=== PATIENT | male | born 1985 | race Caucasian/White ===

== ENCOUNTER 2016-11-27 02:35 | Emergency (ER) | payer OTHER ==
--- NOTE | ~2016-11-27 | US115 ---
[facility] A Service of [facility] [place] RADIOLOGY TEXT RESULTS PATIENT: CHEY ZELAYA LOCATION: SED : 85 UNIT #: [id number] AGE: [address]: Jarrod Rueda MD SEX: M ORDER DR: [id number] [place] [id number] E MR#: [id number] Acc #: [id number] NAME: CHEY ZELAYA : 1985 SEX: M STUDY DATE/TIME: 11/27/2016 04:05 UNIT: SED ROOM: STUDY DESCRIPTION: US Scrotum and Contents Attending Physician: Jarrod Rueda M.D. Ordering Physician: Jarrod Rueda M.D. MEDICAL IMAGING REPORT This report is preliminary unless electronic signature is present. EXAM Scrotal ultrasound 11/27/2016 04:05 INDICATION Right testicular pain and swelling for 3 days. FINDINGS Pemberton-scale, color flow, and spectral Doppler waveform analysis is performed of the scrotum and contents. No comparison. Both testicles are normal. There are no intratesticular masses. Both testicles show perfusion by Doppler. Both epididymides are normal to the extent that they are visible. There is a small right hydrocele. There is also a questionable small right inguinal hernia. IMPRESSION 1. Both testicles are normal. 2. Trace amount of right hydrocele. 3. Epididymides grossly normal to the extent that they are seen. 4. Questionable small fat containing inguinal hernia on the right. Dictated by... Adelfo Pozo Jr., M.D. THIS IS AN ELECTRONICALLY VERIFIED REPORT Adelfo Pozo Jr., M.D. at 11/28/2016 6:00 AM DA/yovany TD: 11/27/2016 06:47 JOB #: [id number] MEDICAL IMAGING REPORT [facility] A Service of [facility] [place] RADIOLOGY TEXT RESULTS PATIENT: CHEY ZELAYA LOCATION: SED : 85 UNIT #: [id number] AGE: [address]: Jarrod Rueda MD SEX: M ORDER DR: Page 1 of 1
[2016-11-27 03:27] LABS: URINE SOURCE CLEAN CATCH
[2016-11-27 03:31] LABS: MICRO INDICATED? YES; URINE APPEARANCE CLEAR; URINE BILIRUBIN NEG (NEG); URINE BLOOD TRACE-INTACT (NEG); URINE COLOR YELLOW; URINE GLUCOSE NEG (NORM); URINE KETONE NEG (NEG); URINE LEUKOCYTE ESTERASE TRACE (NEG); URINE NITRATE NEG (NEG); URINE PH 5.5 (5-8); URINE PROTEIN 1+ (NEG); URINE SPECIFIC GRAVITY >=1.030 (1.003-1.035)
[2016-11-27 03:32] LABS: BASOPHIL# 0.1 X10e3 (0-0.3); BASOPHIL% 0.5 % (0-2.5); EOSINOPHIL# 0.1 X10e3 (0-0.7); EOSINOPHIL% 0.9 % (0.0-7.0); HEMATOCRIT 44.2 % (38.0-50.0); LYMPHOCYTE# 1.7 X10e3 (1.0-3.5); LYMPHOCYTE% 13.8 % (17.0-45.0); MEAN CELL VOLUME 87.8 FL (83-96); MEAN CORPUSCULAR HEMOGLOBIN 29.8 PG (28-34); MEAN PLATELET VOLUME 7.8 FL (6.5-11.5); MONOCYTE% 7.7 % (3.0-12.0); NEUTROPHIL# 9.5 X10e3 (1.5-7.1); NEUTROPHIL% 77.1 % (40-75); PLATELET COUNT 256 X10e3 (140-420); RED BLOOD COUNT 5.03 X10e (3.90-5.60); RED CELL DISTRIBUTION WIDTH 13.4 % (11.0-15.5); WHITE BLOOD COUNT 12.3 X10e3 (4.0-10.5)
[2016-11-27 03:36] LABS: CULTURE INDICATED? YES; URINE BACTERIA 1+ (NEG); URINE MUCUS PRESENT; URINE SQUAMOUS EPITHELIAL CELL FEW /[HPF]; URINE TRANSITIONAL EPI CELLS FEW /[HPF]
[2016-11-27 03:36] LABS: DIFF IND NO
[2016-11-27 03:41] LABS: CALCIUM SERUM 8.5 mg/dL (8.4-10.2); GLOM FILT RATE Estimated 99.9 mL/min (>60); POTASSIUM 3.5 mmol/L (3.5-5.1)
[2016-11-29 09:57] LABS: CHLAMYDIA TRACH Detected (Not Detected); N GONOR Not Detected (Not Detected)
== END 2016-11-27 05:43 | disposition home or self-care (01) ==
LOC: SED 02:35
PROVIDERS: Emergency Medicine
DX: N45.1 Epididymitis (principal); F17.200 Nicotine dependence, unspecified, uncomplicated
CPT/HCPCS: 36415; 76870; 80048; 81003; 85025; 87086; 87491; 87591; 93976; 96372; 99284; J0696